=== PATIENT | female | born 2000 | race African-American/Black ===

== ENCOUNTER 2025-03-10 14:26 | Emergency (ER) | payer OTHER ==
[2025-03-10 15:22] LABS: Glucose, Urine (Dipstick) Normal (Negative); Leukocyte 500 (Negative); Protein, Urine (Dipstick) 30 mg/dl (Neg-Trace); Specific Gravity, Urine 1.015 (1.005-1.030)
[2025-03-10] MEDS ORDERED: cefTRIAXone (ROCEPHIN) 1 GM VIAL ONE (15:41)
[2025-03-10 15:52] LABS: CAUTI Indications for Culture Alt mental st,lethar; RBC/HPF 0-3 HPF (0-3); WBC/HPF Greater Than 50 HPF (0-3)
[2025-03-10 15:53] LABS: Bacteria/HPF 4+ HPF (None Seen); Urine Culture Reflex Yes Yes
[2025-03-10 15:53] LABS: BHCG - Serum Negative (NEGATIVE); Pregs Control Background? CLEAR/WHITE (CLR/WHITE); Pregs Control Bar Appear? YES (CONTROL BAR)
[2025-03-10 15:58] LABS: ALT (SGPT) 15 U/L (Less than 34); AST (SGOT) 17 U/L (11-34); Albumin 4.5 g/dL (3.1-4.5); Alkaline Phosphatase 50 U/L (40-110); Anion Gap 13 mmol/L (10-20); BUN (Urea Nitrogen) 11 mg/dL (7.0-18.7); Bilirubin, Total 0.4 mg/dL (0.3-1.2); Calc. Creatinine Clearance 0 mL/min (70-130); Calcium 9.2 mg/dL (7.8-10.44); Carbon Dioxide 22 mmol/L (22-29); Chloride 109 mmol/L (98-107); Globulin 3.2 g/dL (2.4-3.5); Glucose 87 mg/dL (70-105); Potassium 3.5 mmol/L (3.5-5.1); Sodium 140 mmol/L (136-145)
[2025-03-10 16:01] LABS: Troponin I Less than 0.010 ng/mL (< 0.028)
[2025-03-10 16:09] LABS: #Basophils 0.06 10x3/uL (0.0-0.2); #Eosinophils 0.22 10x3/uL (0.0-0.5); #Monocytes 0.53 10x3/uL (0.0-1.1); #Neutrophils 3.84 10x3/uL (1.5-8.4); %Basophils 1.0 % (0.0-2.0); %Eosinophils 3.6 % (0.0-6.0); %Lymphocytes 23.4 % (18.0-47.0); %Monocytes 8.7 % (0.0-10.0); %Neutrophils 63.0 % (40.0-75.0); Hematocrit 27.1 % (34.9-44.5); Hemoglobin 7.8 g/dL (12.0-15.5); Mean Corpuscular Hemoglobin 18.7 pg (27.0-33.0); Mean Corpuscular Volume 65.0 fL (81.6-98.3); Platelet Count 500 10x3/uL (150-450); Red Blood Cell (RBC) Count 4.17 10x6/uL (3.90-5.03); White Blood Cell (WBC) Count 6.10 10x3/uL (3.5-10.5)
[2025-03-10 17:18] LABS: Anisocytosis SLIGHT = 6-15 cells (100X) (0-5/hpf); Microcytosis SLIGHT = 6-15 cells (100X) (0-5/hpf); Ovalocytes SLIGHT = 2-5 cells (100X) (0-1/hpf); Polychromasia SLIGHT = 2-3 cells (100X) (0-2/hpf)
[2025-03-10 17:21] LABS: Platelet Adequacy Comment Appears Increased
== END 2025-03-10 16:57 | disposition home or self-care (01) ==
LOC: CSHERS 14:26
DX: N39.0 Urinary tract infection, site not specified (principal); D64.9 Anemia, unspecified
CPT/HCPCS: 36415; 71045; 80053; 81001; 84484; 84703; 85025; 87086; 93005; 96374; J0696